=== PATIENT | male | born 1995 | race Caucasian/White ===

== ENCOUNTER 2024-12-30 16:43 | Emergency (ER) | payer MEDICAID ==
[~2024-12-30] VITALS: Ht 172.7 cm; Wt 112.2 kg
[~2024-12-30 16:43] MED LIST: LEG1EACH99 MC
[2024-12-30 16:53] VITALS: BP 138/102; PULSE 83; RESP 18; O2SAT 98
[2024-12-30] MEDS ORDERED: AMOX-580 PO (18:15)
--- NOTE | 2024-12-30 18:15 | Physician Documentation ---
HPI ~ General Chief Complaint: Tooth Problem Stated Complaint: TOOTH CHEEK PAIN Time Seen by MD: 17:37 OK to notify your PCP?: Yes Primary Medical Doctor: none Source: patient Mode of Arrival: POV Exam Limitations: no limitations History of Present Illness HPI Comment 29-year-old male with chief complaint right upper dental pain that he states comes and goes but when in his present in his a 10/10 in severity. He states the pain is a shooting type of pain in it radiates to the front of his mouth. He states it feels like there is a needle stabbing into his tooth. He reports the tooth that is hurting him he has a tooth that has had a piece of it missing for quite some time. No recent dental procedures. No recent antibiotics. No ear pain, fever, chills, sore throat, chest pain, sob. Medication Reconciliation Allergies: Coded Allergies: No Known Allergies (Unverified , 12/30/24) Durable Medical Equipment Leg Brace (Knee Brace), 1 EACH , (DME) Past Medical History Past Medical History: No Pertinent History Drug Use: marijuana Lives with: Family Lives In: Home Review of Systems All Other Systems at this time: Reviewed and Negative Physical Exam Vital Signs: Temperature: 98.2, Heart Rate: 83, Respiratory Rate: 18, BP: 138/102, Pulse Oximetry: 98, Weight: 112.200 Oxygen Flow Rate: 0 Physical Exam General Appearance: Alert, WD/WN. NAD. HEENT: NCAT, PERRL, EOMI. No facial swelling, right upper molar partial avulsion, surrounding gingiva erythematous, no edema, areas tender to palpation with tapping over the molar with the avulsion is. Posterior pharyngeal wall normal Neck: Supple, trachea midline. No cervical lymphadenopathy Cardiovascular: RRR. No m/r/g. Lungs: CTAB. Breathing unlabored Extremities: Normal inspection. No edema. Skin: Warm/dry, normal color Neurological: Alert and oriented x4, normal gait. Psychiatric: Affect congruent with mood. Progress Results/Orders Results/Orders Orders - JOHNNA REAVES Amox Tr/Potassium Clavulanate (Augmentin (12/30/24 18:10) Vital Signs 12/30/24 16:53 Temp 98.2 Pulse 83 Resp 18 B/P (MAP) 138/102 Pulse Ox 98 O2 Flow Rate 0 Medical Decision Making Additional information obtaine: N/A Findings na Differential Dx:Considerations: Include: Alveolar fracture, Alveolar osteitis, ANUG, Facial Cellulitis, Periapical abscess, Peridontal abscess, Post-extraction bleeding, Pulpitis, Tooth avulsion, Tooth eruption, Tooth Fracture, Trigeminal neuralgia, Tooth subluxation, Other Departure Time of Disposition: 18:13 Disposition: 01 HOME / SELF CARE / HOMELESS Impression: Primary Impression: Dental abscess Condition: Stable Discharge Instructions: Dental Abscess Additional Instructions: Follow up with those as we discussed we gave you a dosage of antibiotics here but we need to merchandise pickup/receiving associate the prescription at the pharmacy for the rest of the antibiotics and take as prescribed. salt water rinses. minimize eating on that side of your mouth as that will continue to aggravate the nerve. Referrals: NO PRIMARY CARE PROVIDER (PCP) Prescriptions Amox Tr/Potassium Clavulanate 875/125 MG (Augmentin 875/125 MG) 875 Mg-125 Mg Tablet 1 TAB PO Q12H for 10 Days, #20 TAB Prov: JOHNNA REAVES 12/30/24 Education Educated: Patient Educated regarding: diagnosis, treatment, need for follow up Signature Scribe Signature: x Attestation: JOHNNA Wing Dec 30, 2024 18:15
[2024-12-30 18:17] VITALS: TEMP 98.2
[2024-12-30] MEDS: amox tr/potassium clavulanate 875/125mg TAB PO ONE (18:26)
== END 2024-12-30 18:34 | disposition home or self-care (01) ==
LOC: ER 16:44
DX: K04.7 Periapical abscess without sinus (principal)
CPT/HCPCS: 99283